=== PATIENT | female | born 1995 | race Asian ===

== ENCOUNTER 2018-01-21 17:22 | Inpatient (IN) | payer OTHER ==
[2018-01-21] MEDS ORDERED: MISOPROSTOL 200 MCG TAB PR (18:00)
[2018-01-21] MEDS ORDERED: OXYTOCIN 30 UNITS/LR 500 ML IV (18:00)
[2018-01-21] MEDS ORDERED: IBUPROFEN 600 MG TAB PO (18:00)
[2018-01-21] MEDS ORDERED: METHYLERGONOVINE 0.2 MG INJ IM (18:00)
[2018-01-21] MEDS ORDERED: BUTORPHANOL 2 MG INJ IV (18:00)
[2018-01-21] MEDS ORDERED: LIDOCAINE 1% (MPF) 30 ML INJ INJ (18:00)
[2018-01-21] MEDS ORDERED: CARBOPROST 250 MCG INJ IM (18:00)
[2018-01-21] MEDS: LACTATED RINGER'S 1,000 ML IV ×2 (18:58→21:59)
[2018-01-21] MEDS: AMPICILLIN 2 GM/NS (PMX) 100 ML IV (19:02)
[2018-01-21 19:47] LABS: ADD MAN DIFF? NO
[2018-01-21 19:51] LABS: RUPTURE FETAL MEMBRANES POSITIVE (NEGATIVE)
[2018-01-21 19:52] LABS: WHITE BLOOD COUNT 13.5 10^3/ul (4.8-10.8)
[2018-01-21 19:52] LABS: BASOPHILS % 0.3 % (0.0-2.0); EOSINOPHILS % 0.1 % (0.0-7.0); HEMATOCRIT 34.8 % (37.0-47.0); HEMOGLOBIN 11.8 g/dl (12.0-16.0); LYMPHOCYTES # 3.1 10^3/ul (0.8-2.9); LYMPHOCYTES % 23.2 % (15.0-51.0); MEAN CORPUSCULAR HEMOGLOBIN 30.5 pg (29.0-33.0); MEAN CORPUSCULAR HGB CONC 33.9 g/dl (32.0-37.0); MEAN CORPUSCULAR VOLUME 89.9 fl (82.0-101.0); MEAN PLATELET VOLUME 9.6 fl (7.4-10.4); MONOCYTE # 0.7 10^3/ul (0.3-0.9); MONOCYTES % 5.4 % (0.0-11.0); NEUTROPHIL # 9.4 10^3/ul (1.6-7.5); NEUTROPHILS % 69.7 % (39.0-77.0); PLATELET COUNT 255 10^3/UL (140-415); RED BLOOD COUNT 3.87 10^6/ul (4.20-5.40); RED CELL DISTRIBUTION WIDTH 13.3 % (11.5-14.5)
[2018-01-21 20:40] LABS: HEPATITIS B SURFACE ANTIGEN NEGATIVE (NEGATIVE)
[2018-01-21 20:56] LABS: HIV 1&2 ANTIBODY NEGATIVE (NEGATIVE)
[2018-01-21] MEDS: OXYTOCIN 30 UNITS/LR 500 ML IV (21:04)
[2018-01-21 21:09] LABS: INR 0.98; PROTIME 13.1 Sec (11.9-14.9)
[2018-01-21 21:10] LABS: PARTIAL THROMBOPLASTIN TIME 27.5 Sec (25.0-35.0)
[2018-01-21 22:55] LABS: RAPID PLASMA REAGIN NONREACTIVE (NR)
[2018-01-21] MEDS ORDERED: FENTAnyl 2MCG/ML-ROPIV 0.2% 100 ML (23:21)
[2018-01-21] MEDS: AMPICILLIN 1 GM/NS (PMX) 50 ML IV (23:26)
[2018-01-22] MEDS ORDERED: NALOXONE (0.4 MG/ML) INJ IV
[2018-01-22] MEDS: FENTAnyl 2MCG/ML-ROPIV 0.2% 100 ML BAG EPI (00:16)
[2018-01-22] MEDS: LACTATED RINGER'S 1,000 ML IV (01:51)
[2018-01-22] MEDS: AMPICILLIN 1 GM/NS (PMX) 50 ML IV (03:08)
[2018-01-22] MEDS: ACETAMINOPHEN 325 MG TAB PO (03:33)
[2018-01-22] MEDS: OXYTOCIN 30 UNITS/LR 500 ML IV ×3 (04:20→05:05)
[2018-01-22] MEDS: LACTATED RINGER'S 1,000 ML IV* ×3 (05:05→21:05)
[2018-01-22] MEDS ORDERED: ONDANSETRON 4 MG INJ IV (05:30)
[2018-01-22] MEDS ORDERED: SENNA/DOCUSATE NA (8.6MG/50MG) TAB PO (05:30)
[2018-01-22] MEDS ORDERED: MISOPROSTOL 200 MCG TAB PR (05:30)
[2018-01-22] MEDS ORDERED: OXYTOCIN 30 UNITS/LR 500 ML IV (05:30)
[2018-01-22] MEDS ORDERED: METHYLERGONOVINE 0.2 MG INJ IM (05:30)
[2018-01-22] MEDS ORDERED: ACETAMINOPHEN 325 MG TAB PO ×2 (05:30)
[2018-01-22] MEDS ORDERED: CARBOPROST 250 MCG INJ IM (05:30)
[2018-01-22] MEDS: metroNIDAZOLE 500 MG/NS (PMX) 100 ML IVPB (06:30)
[2018-01-22] MEDS: CEFAZOLIN 1 GM/50 ML (PMX) 50 ML IV ×3 (08:25→21:29)
[2018-01-22] MEDS: DOCUSATE SODIUM 100 MG CAP PO ×2 (10:03→20:53)
[2018-01-22] MEDS: HYDROCODONE/APAP (5/325) TAB PO ×3 (10:06→23:39)
[2018-01-22] MEDS: DIBUCAINE 1% 30 GM OINT PR (10:22)
[2018-01-22] MEDS: WITCH HAZEL/GLYCERIN PAD PR (10:22)
[2018-01-22] MEDS: BENZOCAINE 20% 56 ML SPRAY TOP (10:23)
[2018-01-22] MEDS: LANOLIN 7 GM TUBE TOP (10:23)
[2018-01-22] MEDS: IBUPROFEN 600 MG TAB PO ×2 (13:00→21:36)
[2018-01-22] MEDS ORDERED: HYDROCODONE/APAP (5/325) TAB PO (16:00)
[2018-01-23] MEDS: LACTATED RINGER'S 1,000 ML IV* (05:05)
[2018-01-23] MEDS: IBUPROFEN 600 MG TAB PO ×4 (05:32→23:55)
[2018-01-23] MEDS: HYDROCODONE/APAP (5/325) TAB PO (05:32)
[2018-01-23] MEDS: DOCUSATE SODIUM 100 MG CAP PO ×2 (10:06→20:36)
[2018-01-23] MEDS: MAGNESIUM HYDROXIDE 30ML CUP PO (10:07)
[2018-01-23 10:22] LABS: ADD MAN DIFF? NO
[2018-01-23 10:28] LABS: BASOPHILS % 0.2 % (0.0-2.0); EOSINOPHILS # 0.1 10^3/ul (0.0-0.5); EOSINOPHILS % 0.3 % (0.0-7.0); HEMATOCRIT 24.2 % (37.0-47.0); HEMOGLOBIN 8.1 g/dl (12.0-16.0); LYMPHOCYTES # 2.6 10^3/ul (0.8-2.9); LYMPHOCYTES % 17.5 % (15.0-51.0); MEAN CORPUSCULAR HEMOGLOBIN 30.7 pg (29.0-33.0); MEAN CORPUSCULAR HGB CONC 33.5 g/dl (32.0-37.0); MEAN CORPUSCULAR VOLUME 91.7 fl (82.0-101.0); MEAN PLATELET VOLUME 9.3 fl (7.4-10.4); MONOCYTE # 0.7 10^3/ul (0.3-0.9); MONOCYTES % 4.5 % (0.0-11.0); NEUTROPHIL # 11.5 10^3/ul (1.6-7.5); NEUTROPHILS % 76.8 % (39.0-77.0); PLATELET COUNT 182 10^3/UL (140-415); RED BLOOD COUNT 2.64 10^6/ul (4.20-5.40)
[2018-01-23 10:46] LABS: ALANINE AMINOTRANSFERASE 28 IU/L (13-69); ALBUMIN/GLOBULIN RATIO 1.15; ALKALINE PHOSPHATASE 80 IU/L (42-121); ANION GAP 11 (8-16); ASPARTATE AMINO TRANSFERASE 35 IU/L (15-46); BLOOD UREA NITROGEN 8 mg/dl (7-20); CALCIUM 8.5 mg/dl (8.4-10.2); CARBON DIOXIDE 27 mmol/L (21-31); CHLORIDE 105 mmol/L (97-110); CREATININE 0.63 mg/dl (0.44-1.00); GLUCOSE 104 mg/dl (70-220); POTASSIUM 3.6 mmol/L (3.5-5.1); SODIUM 139 mmol/L (135-144); TOTAL PROTEIN 5.6 g/dl (6.1-8.1)
[2018-01-23 12:21] LABS: RUBELLA ANTIBODY - IGG 2.95 index
[2018-01-23] MEDS: FERROUS SULFATE (EC) 325 MG TAB PO (20:37)
[2018-01-24] MEDS: IBUPROFEN 600 MG TAB PO ×2 (06:02→11:26)
[2018-01-24 10:48] LABS: ADD MAN DIFF? NO
[2018-01-24 10:50] LABS: BASOPHIL # 0.1 10^3/ul (0.0-0.1); BASOPHILS % 0.4 % (0.0-2.0); EOSINOPHILS # 0.2 10^3/ul (0.0-0.5); EOSINOPHILS % 1.4 % (0.0-7.0); HEMATOCRIT 26.3 % (37.0-47.0); HEMOGLOBIN 8.8 g/dl (12.0-16.0); LYMPHOCYTES # 2.4 10^3/ul (0.8-2.9); LYMPHOCYTES % 17.1 % (15.0-51.0); MEAN CORPUSCULAR HEMOGLOBIN 30.7 pg (29.0-33.0); MEAN CORPUSCULAR HGB CONC 33.5 g/dl (32.0-37.0); MEAN CORPUSCULAR VOLUME 91.6 fl (82.0-101.0); MONOCYTE # 0.6 10^3/ul (0.3-0.9); MONOCYTES % 4.6 % (0.0-11.0); NEUTROPHIL # 10.5 10^3/ul (1.6-7.5); NEUTROPHILS % 75.6 % (39.0-77.0); PLATELET COUNT 235 10^3/UL (140-415); RED BLOOD COUNT 2.87 10^6/ul (4.20-5.40)
[2018-01-24 10:50] LABS: WHITE BLOOD COUNT 13.9 10^3/ul (4.8-10.8)
[2018-01-24] MEDS: FERROUS SULFATE (EC) 325 MG TAB PO ×2 (11:21→13:32)
[2018-01-24] MEDS: DOCUSATE SODIUM 100 MG CAP PO (11:22)
[2018-01-24] MEDS: DIPHTH/TET/ACEL PERTUSS (ADULT) 0.5 ML VIAL IM* (13:37)
== END 2018-01-24 14:45 | disposition home or self-care (01) | DRG 775 ==
LOC: OBT 17:22 → PP1 01-22 08:46 → L-D 17:23 → OBT 17:46 → L-D 17:49
PROVIDERS: Obstetrics & Gynecology
PROC: 10E0XZZ Delivery of Products of Conception, External Approach (ICD-10-PCS; principal; 2018-01-21)
PROC: 0W8NXZZ Division of Female Perineum, External Approach (ICD-10-PCS; 2018-01-21)
PROC: 3E033VJ Introduction of Other Hormone into Peripheral Vein, Percutaneous Approach (ICD-10-PCS; 2018-01-21)
DX: O69.81X0 Labor and delivery complicated by cord around neck, without compression, not applicable or unspecified (principal); Z3A.39 39 weeks gestation of pregnancy; Z37.0 Single live birth
CPT/HCPCS: 62319; 76815; 76818; 80053; 84112; 85025; 85610; 85730; 86592; 86703; 86762; 86850; 86900; 86901; 87340; 99464

== ENCOUNTER 2018-01-30 05:24 | Emergency (ER) | payer OTHER ==
[2018-01-30 07:06] LABS: ADD MAN DIFF? NO
[2018-01-30 07:08] LABS: BASOPHIL # 0.1 10^3/ul (0.0-0.1); BASOPHILS % 0.6 % (0.0-2.0); EOSINOPHILS # 0.2 10^3/ul (0.0-0.5); HEMOGLOBIN 10.5 g/dl (12.0-16.0); LYMPHOCYTES # 2.4 10^3/ul (0.8-2.9); LYMPHOCYTES % 28.8 % (15.0-51.0); MEAN CORPUSCULAR HEMOGLOBIN 30.1 pg (29.0-33.0); MEAN CORPUSCULAR HGB CONC 32.8 g/dl (32.0-37.0); MEAN CORPUSCULAR VOLUME 91.7 fl (82.0-101.0); MEAN PLATELET VOLUME 8.5 fl (7.4-10.4); MONOCYTE # 0.5 10^3/ul (0.3-0.9); MONOCYTES % 6.1 % (0.0-11.0); NEUTROPHIL # 4.9 10^3/ul (1.6-7.5); NEUTROPHILS % 60.3 % (39.0-77.0); PLATELET COUNT 342 10^3/UL (140-415); RED BLOOD COUNT 3.49 10^6/ul (4.20-5.40); RED CELL DISTRIBUTION WIDTH 13.5 % (11.5-14.5)
[2018-01-30 07:08] LABS: WHITE BLOOD COUNT 8.2 10^3/ul (4.8-10.8)
[2018-01-30 07:32] LABS: ALANINE AMINOTRANSFERASE 27 IU/L (13-69); ALBUMIN 4.5 g/dl (3.3-4.9); ALBUMIN/GLOBULIN RATIO 1.45; ALKALINE PHOSPHATASE 83 IU/L (42-121); ANION GAP 17 (8-16); ASPARTATE AMINO TRANSFERASE 23 IU/L (15-46); BLOOD UREA NITROGEN 14 mg/dl (7-20); CALCIUM 9.4 mg/dl (8.4-10.2); CARBON DIOXIDE 25 mmol/L (21-31); CHLORIDE 107 mmol/L (97-110); GLUCOSE 85 mg/dl (70-220); POTASSIUM 4.2 mmol/L (3.5-5.1); SODIUM 145 mmol/L (135-144); TOTAL PROTEIN 7.6 g/dl (6.1-8.1)
[2018-01-30 08:12] LABS: URINE BLOOD (Dip) POC 3+ (NEGATIVE); URINE GLUCOSE (Dip) POC Negative (NEGATIVE); URINE KETONES (Dip) POC Negative (NEGATIVE); URINE LEUKOCYTE EST (Dip) POC 1+ (NEGATIVE); URINE NITRITE (Dip) POC Negative (NEGATIVE); URINE TOTAL PROTEIN POC Negative (NEGATIVE)
== END 2018-01-30 08:32 | disposition home or self-care (01) ==
LOC: FTE 05:24
DX: O72.1 Other immediate postpartum hemorrhage (principal); R10.2 Pelvic and perineal pain
CPT/HCPCS: 36415; 76856; 80053; 81003; 85025; 99284-25